=== PATIENT | male | born 1980 | race Caucasian/White ===

== ENCOUNTER 2016-09-08 12:49 | Inpatient (IN) | payer OTHER ==
[2016-09-08] MEDS ORDERED: P-EPHED 60MG/TRIPROLIDI 2.5MG TABLET PO PRN (13:58)
[2016-09-08] MEDS ORDERED: guaiFENesin/D-METHORPHAN HB 10 ML UNIT-DOSE CUPS PO PRN (13:58)
[2016-09-08] MEDS ORDERED: IBUPROFEN 400 MG TABLET (FP) PO PRN (13:58)
[2016-09-08] MEDS ORDERED: MAGNESIUM HYDROX 2400MG/30ML ORAL SUSPENSION 30 ML CUP PO PRN (13:58)
[2016-09-08] MEDS ORDERED: ACETAMINOPHEN 325 MG TABLET (FP) PO PRN (13:58)
[2016-09-08] MEDS ORDERED: MAGNESIUM CITRATE 300 ML BOTTLE PO PRN (13:58)
[2016-09-08] MEDS ORDERED: LOPERAMIDE HCL 2 MG CAPSULE PO PRN (13:58)
[2016-09-08] MEDS ORDERED: MENTHOL/PHENOL 1 EACH UD MM PRN (13:58)
[2016-09-08] MEDS ORDERED: MAG HYDROX/AL HYDROX/SIMETH 30 ML UNIT-DOSE CUP PO PRN (13:58)
--- NOTE | 2016-09-08 17:05 | HP ---
[facility] Rehab Assess/Revision - Admission History Admitted to Rehab [facility]: [facility] Date of Admission to Rehab: 09/08/16 - Vital signs Vital Signs: Vital Signs Period Temp Pulse Resp BP Sys/Limon Pulse Ox Last 24 Hr 98.3 F 79 18 111/77 - Findings Detox History & Physical reviewed: Yes Concur with findings: Yes Comments/Additional Findings: trasnferred from detox to rehab admission as per protocol
[2016-09-08] MEDS: THIAMINE HCL 100 MG TABLET (FP) PO SCH (21:36)
[2016-09-08] MEDS: diphenhydrAMINE HCL 50 MG CAPSULE PO PRN (21:36)
[2016-09-09] MEDS: NICOTINE 21 MG/24 HOURS TOPICAL PATCH TD SCH (10:27)
[2016-09-09] MEDS: PRENATAL VITAMINS W/ FOLIC ACID TABLET (FP) PO SCH (10:27)
[2016-09-09] MEDS ORDERED: INFLUENZA VACCINE 45 MCG/0.5 ML (MDV 16-17) IM ONE (12:00)
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
[2016-09-09] MEDS: hydrOXYzine PAMOATE 50 MG CAPSULE (FP) PO PRN (14:08)
[2016-09-09] MEDS: cloNIDine HCL 0.1 MG TABLET PO SCH ×2 (15:03→21:37)
[2016-09-09] MEDS: THIAMINE HCL 100 MG TABLET (FP) PO SCH (21:37)
[2016-09-09] MEDS: diphenhydrAMINE HCL 50 MG CAPSULE PO PRN (21:38)
[2016-09-09] MEDS ORDERED: QUEtiapine FUMARATE 50 MG TABLET PO SCH (22:00)
[2016-09-10] MEDS: hydrOXYzine PAMOATE 50 MG CAPSULE (FP) PO PRN (06:27)
[2016-09-10 07:01] VITALS: BP 116/72; PULSE 65; TEMP 97.4
[2016-09-10] MEDS: PRENATAL VITAMINS W/ FOLIC ACID TABLET (FP) PO SCH (10:06)
[2016-09-10] MEDS: NICOTINE 21 MG/24 HOURS TOPICAL PATCH TD SCH (10:06)
[2016-09-10] MEDS: cloNIDine HCL 0.1 MG TABLET PO SCH (10:06)
--- NOTE | 2016-09-13 15:38 | PN ---
[facility] Progress Note Note: patient left the unit on 09/10/16, please see medical staff notes.
== END 2016-09-10 12:50 | disposition left against medical advice (07) | DRG 770 ==
LOC: YASAS 12:49 → Y5N 12:56
PROVIDERS: ADMIT Psychiatry & Neurology Psychiatry; ATTEND Psychiatry & Neurology Psychiatry
PROC: HZ42ZZZ Group Counseling for Substance Abuse Treatment, Cognitive-Behavioral (ICD-10-PCS; principal; 2016-09-08)
DX: F11.20 Opioid dependence, uncomplicated (principal); F13.20 Sedative, hypnotic or anxiolytic dependence, uncomplicated; F14.251 Cocaine dependence with cocaine-induced psychotic disorder with hallucinations; F17.210 Nicotine dependence, cigarettes, uncomplicated

== ENCOUNTER 2016-10-18 11:38 | Inpatient (IN) | payer OTHER ==
[2016-10-18 12:42] VITALS: BMI 22.0
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
[2016-10-18] MEDS ORDERED: MAGNESIUM CITRATE 300 ML BOTTLE PO PRN (14:29)
[2016-10-18] MEDS ORDERED: LOPERAMIDE HCL 2 MG CAPSULE PO PRN (14:29)
[2016-10-18] MEDS ORDERED: diphenhydrAMINE HCL 50 MG CAPSULE PO PRN (14:29)
[2016-10-18] MEDS ORDERED: MENTHOL/PHENOL 1 EACH UD MM PRN (14:29)
[2016-10-18] MEDS ORDERED: IBUPROFEN 400 MG TABLET (FP) PO PRN (14:29)
[2016-10-18] MEDS ORDERED: ACETAMINOPHEN 325 MG TABLET (FP) PO PRN (14:29)
[2016-10-18] MEDS ORDERED: MAG HYDROX/AL HYDROX/SIMETH 30 ML UNIT-DOSE CUP PO PRN (14:29)
[2016-10-18] MEDS ORDERED: guaiFENesin/D-METHORPHAN HB 10 ML UNIT-DOSE CUPS PO PRN (14:29)
[2016-10-18] MEDS ORDERED: MAGNESIUM HYDROX 2400MG/30ML ORAL SUSPENSION 30 ML CUP PO PRN (14:29)
[2016-10-18] MEDS ORDERED: P-EPHED 60MG/TRIPROLIDI 2.5MG TABLET PO PRN (14:29)
[2016-10-18] MEDS ORDERED: NICOTINE POLACRILEX 4 MG GUM BUC PRN (14:29)
[2016-10-18] MEDS ORDERED: METHADONE HCL 10 MG TABLET (FOR DETOX USE ONLY) PO ONE ×2 (15:24→23:00)
[2016-10-18] MEDS: NICOTINE 21 MG/24 HOURS TOPICAL PATCH TD SCH (15:46)
[2016-10-18 20:03] LABS: URINE APPEARANCE CLEAR; URINE BILIRUBIN NEGATIVE (NEGATIVE); URINE BLOOD NEGATIVE (NEGATIVE); URINE COLOR YELLOW; URINE GLUCOSE (UA) NEGATIVE (NEGATIVE); URINE KETONE NEGATIVE (NEGATIVE); URINE LEUK ESTERASE NEGATIVE (NEGATIVE); URINE NITRITE NEGATIVE (NEGATIVE); URINE PROTEIN NEGATIVE (NEGATIVE); URINE UROBILINOGEN NEGATIVE E.U./dl (0.2-1.0)
[2016-10-18] MEDS: THIAMINE HCL 100 MG TABLET (FP) PO SCH (22:29)
[2016-10-18] MEDS: diazePAM 5 MG TABLET PO PRN (22:30)
[2016-10-19] MEDS ORDERED: METHADONE HCL 10 MG TABLET (FOR DETOX USE ONLY) PO ONE (10:00)
[2016-10-19 10:11] LABS: MCH 31.7 pg (25.7-33.7); MEAN CELL VOLUME 96.3 fl (80-96); MEAN PLT VOLUME 8.7 fl (7.5-11.1); PLATELET COUNT 235 K/MM3 (134-434); RDW 14.5 % (11.9-15.9)
[2016-10-19 10:35] LABS: ALBUMIN 4.2 g/dl (3.4-5.0); ALK PHOS 94 U/L (45-117); ANION GAP 10 (8-16); BILIRUBIN,TOTAL 0.4 mg/dL (0.2-1.0); CALCIUM 9.2 mg/dL (8.5-10.1); CO2 27 mmol/L (21-32); GLUCOSE,RANDOM 109 mg/dL (74-106); SGOT/AST 42 U/L (15-37); SGPT/ALT 54 U/L (12-78); TOT PROT 8.5 g/dl (6.4-8.2)
--- NOTE | 2016-10-19 10:47 | EKG ---
Test Reason : Blood Pressure : / mmHG Vent. Rate : 068 BPM Atrial Rate : 068 BPM P-R Int : 144 ms QRS Dur : 090 ms QT Int : 424 ms P-R-T Axes : 038 -55 009 degrees QTc Int : 450 ms NORMAL SINUS RHYTHM LEFT ANTERIOR FASCICULAR BLOCK ABNORMAL ECG NO PREVIOUS ECGS AVAILABLE Confirmed by CIRA STARK, RENETTA ([id number]) on 10/19/2016 10:47:39 AM Referred By: Confirmed By:RENETTA DENIS MD
[2016-10-19] MEDS: NICOTINE 21 MG/24 HOURS TOPICAL PATCH TD SCH (10:51)
[2016-10-19] MEDS: PRENATAL VITAMINS W/ FOLIC ACID TABLET (FP) PO SCH (10:51)
[2016-10-19] MEDS: diazePAM 5 MG TABLET PO PRN ×3 (10:53→22:11)
--- NOTE | 2016-10-19 11:54 | PN ---
[facility] COWS - Scale Resting Pulse: 0= [place] 80 or Below Sweatin=Flushed/Facial Moisture Restless Observation: 1= Difficult to Sit Still Pupil Size: 1= Pupils >than Normal Bone or Joint Aches: 2= Severe Diffuse Aches Runny Nose/ Eye Tearin= Nasal Congestion GI Upset > 30mins: 1= Stomach Cramp Tremor Observation of Outstretched Hands: 2= Slight Tremor Visible Yawning Observation: 0= None Anxiety or Irritability: 2=Irritable/Anxious Goose Flesh Skin: 0=Smooth Skin COWS Score: 12 S Progress Note (SOAP) Subjective: interrupted sleep, sweats, irritable Objective: 10/19/16 11:53 Vital Signs Temperature 98.4 F 10/19/16 10:05 Pulse Rate 75 10/19/16 10:05 Respiratory Rate 16 10/19/16 10:05 Blood Pressure 130/64 10/19/16 10:05 O2 Sat by Pulse Oximetry (%) Laboratory Tests 10/18/16 10/19/16 10/19/16 16:00 05:50 05:50 WBC 9.0 RBC 4.21 Hgb 13.4 Hct 40.5 MCV 96.3 H MCHC 33.0 RDW 14.5 Plt Count 235 MPV 8.7 Sodium 138 Potassium 4.0 Chloride 101 Carbon Dioxide 27 Anion Gap 10 BUN 16 Creatinine 1.0 Creat Clearance w eGFR > 60 Random Glucose 109 H D Calcium 9.2 Total Bilirubin 0.4 AST 42 H D ALT 54 D Alkaline Phosphatase 94 Total Protein 8.5 H Albumin 4.2 Urine Color Yellow Urine Appearance Clear Urine pH 5.0 Ur Specific [place] 1.025 Urine Protein Negative Urine Glucose (UA) Negative Urine Ketones Negative Urine Blood Negative Urine Nitrite Negative Urine Bilirubin Negative Urine Urobilinogen Negative Ur Leukocyte Esterase Negative pt aox3 lying in bed , irritable Assessment: 10/19/16 11:53 withdrawl sx's Plan: cont. detox increase fluids
--- NOTE | 2016-10-19 19:14 | CONSULT ---
[facility] Psychiatric Consult - Data Date of interview: 10/19/16 Admission source: [facility] Identifying data: Readmission to [facility] for this 36 y/o male seeking detox treatment on for heroin and cocaine dependence.Patient is single witout children,homeless,unemployed and supported on welfare. Substance Abuse History: - Smoking Cessation. Smoking history: Current every day smoker. Have you smoked in the past 12 months: Yes. Aproximately how many cigarettes per day: 10. Cigars Per Day: 0. Hx Chewing Tobacco Use: No. Initiated information on smoking cessation: Yes. 'Breaking Loose' booklet given : 10/18/16. - Substance & Tx. History. Hx Alcohol Use: No (DENIES). Hx Substance Use: Yes (HEROIN/COCAINE). Substance Use Type: Cocaine, Heroin, Opiates. Hx Substance Use Treatment: Yes ([facility]OX). - Substances Abused. Heroin. Route: Injection. Frequency: Daily. Amount used: 8-10 bags. Age of first use: 19. Date of Last Use: 10/18/16. Cocaine. Route: Injection. Frequency: Daily. Amount used: $100. Age of first use: 19. Date of Last Use: 10/18/16. Street methadone. Frequency: 1-3 times last 30 days. Amount used : 20-30 mg. Age of first use: 32. Date of Last Use: 10/11/16. Confirmed by patient. Medical History: Hepatitis C. Psychiatric History: Patient denies. Physical/Sexual Abuse/Trauma History: Patient denies. Additional Comment: Urine Drug Screen Results: LORENA-Cocaine, OPI-Opiates, MET- Methamphetamine, BZO-Benzodiazepines, MTD-Methadone, OXY-Oxycodone.Noted. Mental Status Exam - Mental Status Exam Alert and Oriented to: Time, Place, Person Cognitive Function: Good Patient Appearance: Well Groomed Mood: Hopeful, Euthymic Affect: Appropriate, Normal Range Patient Behavior: Fatigued, Appropriate, Cooperative Speech Pattern: Clear, Appropriate Voice Loudness: Normal Thought Process: Intact, Goal Oriented Thought Disorder: Not Present Hallucinations: Denies Suicidal Ideation: Denies Homicidal Ideation: Denies Insight/Judgement: Poor Sleep: Poorly, Difficulty falling asleep Appetite: Good Muscle strength/Tone: Normal Gait/Station: Normal Psychiatric Findings - Problem List ([place] 1, 2,3) (1) Cocaine dependence, uncomplicated Current Visit: Yes Status: Acute (2) Opioid dependence with withdrawal Current Visit: Yes Status: Acute (3) Nicotine dependence Current Visit: Yes Status: Acute Qualifiers: Nicotine product type: cigarettes Substance use status: uncomplicated Qualified Code(s): F17.210 - Nicotine dependence, cigarettes, uncomplicated (4) Hepatitis C Current Visit: Yes Status: Chronic Qualifiers: Viral hepatitis chronicity: chronic - Initial Treatment Plan Initial Treatment Plan: Psychoeducation.Detoxification.Seroquel 100 mg po hs.Side effects/benefits discussed with the patient.He agrees with this plan.Observation.
[2016-10-19] MEDS: QUEtiapine FUMARATE 100 MG TABLET (FP) PO SCH (22:11)
[2016-10-19] MEDS: THIAMINE HCL 100 MG TABLET (FP) PO SCH (22:11)
--- NOTE | 2016-10-20 09:43 | PN ---
S COWS - Scale Resting Pulse: 0= [place] 80 or Below Sweatin=Flushed/Facial Moisture Restless Observation: 1= Difficult to Sit Still Pupil Size: 0= Normal to Room Light Bone or Joint Aches: 2= Severe Diffuse Aches Runny Nose/ Eye Tearin= Nasal Congestion GI Upset > 30mins: 0= None Tremor Observation of Outstretched Hands: 2= Slight Tremor Visible Yawning Observation: 1= 1-2x During Session Anxiety or Irritability: 2=Irritable/Anxious Goose Flesh Skin: 0=Smooth Skin COWS Score: 11 [facility] Progress Note (SOAP) Subjective: sweats agitation irritable i want ensure Objective: 10/20/16 09:42 Vital Signs Temperature 97.3 F L 10/20/16 06:54 Pulse Rate 66 10/20/16 06:54 Respiratory Rate 16 10/20/16 06:54 Blood Pressure 98/64 10/20/16 06:54 O2 Sat by Pulse Oximetry (%) Laboratory Tests 10/18/16 10/19/16 10/19/16 16:00 05:50 05:50 WBC 9.0 RBC 4.21 Hgb 13.4 Hct 40.5 MCV 96.3 H MCHC 33.0 RDW 14.5 Plt Count 235 MPV 8.7 Sodium 138 Potassium 4.0 Chloride 101 Carbon Dioxide 27 Anion Gap 10 BUN 16 Creatinine 1.0 Creat Clearance w eGFR > 60 Random Glucose 109 H D Calcium 9.2 Total Bilirubin 0.4 AST 42 H D ALT 54 D Alkaline Phosphatase 94 Total Protein 8.5 H Albumin 4.2 Urine Color Yellow Urine Appearance Clear Urine pH 5.0 Ur Specific [place] 1.025 Urine Protein Negative Urine Glucose (UA) Negative Urine Ketones Negative Urine Blood Negative Urine Nitrite Negative Urine Bilirubin Negative Urine Urobilinogen Negative Ur Leukocyte Esterase Negative RPR Titer 10/19/16 05:50 WBC RBC Hgb Hct MCV MCHC RDW Plt Count MPV Sodium Potassium Chloride Carbon Dioxide Anion Gap BUN Creatinine Creat Clearance w eGFR Random Glucose Calcium Total Bilirubin AST ALT Alkaline Phosphatase Total Protein Albumin Urine Color Urine Appearance Urine pH Ur Specific [place] Urine Protein Urine Glucose (UA) Urine Ketones Urine Blood Urine Nitrite Urine Bilirubin Urine Urobilinogen Ur Leukocyte Esterase RPR Titer Nonreactive awake/alert ambulating no acute distress Assessment: 10/20/16 09:42 withdrawal sx Plan: continue detox increase fluids ensure plus 120ml po bid
[2016-10-20] MEDS ORDERED: METHADONE HCL 5 MG TABLET (FOR DETOX USE ONLY) PO ONE (10:00)
[2016-10-20] MEDS: PRENATAL VITAMINS W/ FOLIC ACID TABLET (FP) PO SCH (10:52)
[2016-10-20] MEDS: NICOTINE 21 MG/24 HOURS TOPICAL PATCH TD SCH (10:53)
--- NOTE | 2016-10-20 20:02 | PN ---
S Progress Note Note: RECEIVED NURSE CALL PATIENT REQUESTS ENSURE BMI 22 ENSURE 120 ML BID CONTINUE DETOX
[2016-10-20] MEDS: THIAMINE HCL 100 MG TABLET (FP) PO SCH (23:02)
[2016-10-20] MEDS: diazePAM 5 MG TABLET PO PRN (23:03)
[2016-10-20] MEDS: QUEtiapine FUMARATE 100 MG TABLET (FP) PO SCH (23:03)
[2016-10-21] MEDS ORDERED: METHADONE HCL 5 MG TABLET (FOR DETOX USE ONLY) PO ONE (10:00)
[2016-10-21] MEDS: PRENATAL VITAMINS W/ FOLIC ACID TABLET (FP) PO SCH (10:28)
[2016-10-21] MEDS: NICOTINE 21 MG/24 HOURS TOPICAL PATCH TD SCH (10:28)
[2016-10-21] MEDS: diazePAM 5 MG TABLET PO PRN (10:29)
--- NOTE | 2016-10-21 12:49 | PN ---
[facility] Progress Note (SOAP) Subjective: interrupted sleep, sweats , bodyaches Objective: 10/21/16 12:46 Vital Signs Temperature 97.6 F 10/21/16 09:32 Pulse Rate 77 10/21/16 09:32 Respiratory Rate 18 10/21/16 09:32 Blood Pressure 134/69 10/21/16 09:32 O2 Sat by Pulse Oximetry (%) Laboratory Tests 10/18/16 10/19/16 10/19/16 16:00 05:50 05:50 WBC 9.0 RBC 4.21 Hgb 13.4 Hct 40.5 MCV 96.3 H MCHC 33.0 RDW 14.5 Plt Count 235 MPV 8.7 Sodium 138 Potassium 4.0 Chloride 101 Carbon Dioxide 27 Anion Gap 10 BUN 16 Creatinine 1.0 Creat Clearance w eGFR > 60 Random Glucose 109 H D Calcium 9.2 Total Bilirubin 0.4 AST 42 H D ALT 54 D Alkaline Phosphatase 94 Total Protein 8.5 H Albumin 4.2 Urine Color Yellow Urine Appearance Clear Urine pH 5.0 Ur Specific [place] 1.025 Urine Protein Negative Urine Glucose (UA) Negative Urine Ketones Negative Urine Blood Negative Urine Nitrite Negative Urine Bilirubin Negative Urine Urobilinogen Negative Ur Leukocyte Esterase Negative RPR Titer 10/19/16 05:50 WBC RBC Hgb Hct MCV MCHC RDW Plt Count MPV Sodium Potassium Chloride Carbon Dioxide Anion Gap BUN Creatinine Creat Clearance w eGFR Random Glucose Calcium Total Bilirubin AST ALT Alkaline Phosphatase Total Protein Albumin Urine Color Urine Appearance Urine pH Ur Specific [place] Urine Protein Urine Glucose (UA) Urine Ketones Urine Blood Urine Nitrite Urine Bilirubin Urine Urobilinogen Ur Leukocyte Esterase RPR Titer Nonreactive pt aox3 in nad ambulating Assessment: 10/21/16 12:47 withdrawl sx's Plan: cont. detox increase fluids motrin prn
[2016-10-21 14:05] VITALS: BP 137/84; PULSE 74; TEMP 97.7
--- NOTE | 2016-10-21 15:23 | DS ---
[facility] Detox Discharge Summary Admission Date: 10/18/16 Discharge Date: 10/21/16 - History Present History: Alcohol Dependence, Cocaine Dependence, Opioid Dependence, Sedative Dependence - Physical Exam Results Vital Signs: Vital Signs Temperature 97.7 F 10/21/16 14:04 Pulse Rate 74 10/21/16 14:04 Respiratory Rate 16 10/21/16 14:04 Blood Pressure 137/84 10/21/16 14:04 O2 Sat by Pulse Oximetry (%) - Treatment Hospital Course: Detox Protocol Followed - Medication Discharge Medications: Ambulatory Orders Quetiapine Fumarate [Seroquel] 100 mg PO HS #30 tablet 10/19/16 - Diagnosis (1) Benzodiazepine dependence Current Visit: Yes Status: Acute (2) Cocaine dependence, uncomplicated Current Visit: Yes Status: Acute (3) Nicotine dependence Current Visit: Yes Status: Acute Qualifiers: Nicotine product type: cigarettes Substance use status: uncomplicated Qualified Code(s): F17.210 - Nicotine dependence, cigarettes, uncomplicated (4) Opioid dependence with withdrawal Current Visit: Yes Status: Acute (5) Hepatitis C Current Visit: Yes Status: Chronic Qualifiers: Viral hepatitis chronicity: chronic - AMA Did Patient Leave Against Medical Advice: Yes (pt just wants to leave detox/. )
[2016-10-21] MEDS ORDERED: METHYL SALICYLATE/MENTHOL OINT 30 GM TUBE TP SCH (22:00)
[2016-10-22] MEDS ORDERED: METHADONE HCL 10 MG TABLET (FOR DETOX USE ONLY) PO ONE (10:00)
[2016-10-23] MEDS ORDERED: METHADONE HCL 5 MG TABLET (FOR DETOX USE ONLY) PO ONE (06:00)
== END 2016-10-21 15:36 | disposition left against medical advice (07) | DRG 770 ==
LOC: YASAS 11:38 → Y6N 15:11
PROVIDERS: ADMIT Internal Medicine; ATTEND Internal Medicine
PROC: HZ2ZZZZ Detoxification Services for Substance Abuse Treatment (ICD-10-PCS; principal; 2016-10-21)
DX: F11.23 Opioid dependence with withdrawal (principal); F13.230 Sedative, hypnotic or anxiolytic dependence with withdrawal, uncomplicated; F14.20 Cocaine dependence, uncomplicated; F17.210 Nicotine dependence, cigarettes, uncomplicated; B18.2 Chronic viral hepatitis C
CPT/HCPCS: 36415; 80053; 81003; 85027; 86593; 93005; 93010

== ENCOUNTER 2017-01-14 12:28 | Inpatient (IN) | payer OTHER ==
[2017-01-14 16:44] VITALS: BMI 24.1
[2017-01-14] MEDS ORDERED: MAG HYDROX/AL HYDROX/SIMETH 30 ML UNIT-DOSE CUP PO PRN (17:04)
[2017-01-14] MEDS ORDERED: NICOTINE POLACRILEX 2 MG GUM BUC PRN (17:04)
[2017-01-14] MEDS ORDERED: IBUPROFEN 400 MG TABLET (FP) PO PRN (17:04)
[2017-01-14] MEDS ORDERED: LOPERAMIDE HCL 2 MG CAPSULE PO PRN (17:04)
[2017-01-14] MEDS ORDERED: MENTHOL/PHENOL 1 EACH UD MM PRN (17:04)
[2017-01-14] MEDS ORDERED: MAGNESIUM HYDROX 2400MG/30ML ORAL SUSPENSION 30 ML CUP PO PRN (17:04)
[2017-01-14] MEDS ORDERED: ACETAMINOPHEN 325 MG TABLET (FP) PO PRN (17:04)
[2017-01-14] MEDS ORDERED: diphenhydrAMINE HCL 50 MG CAPSULE PO PRN (17:04)
[2017-01-14] MEDS ORDERED: P-EPHED 60MG/TRIPROLIDI 2.5MG TABLET PO PRN (17:04)
[2017-01-14] MEDS ORDERED: MAGNESIUM CITRATE 300 ML BOTTLE PO PRN (17:04)
[2017-01-14] MEDS ORDERED: guaiFENesin/D-METHORPHAN HB 10 ML UNIT-DOSE CUPS PO PRN (17:04)
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
[2017-01-14] MEDS ORDERED: METHADONE HCL 10 MG TABLET (FOR DETOX USE ONLY) PO ONE ×2 (19:00→23:00)
[2017-01-14] MEDS: diazePAM 5 MG TABLET PO PRN (21:25)
[2017-01-14] MEDS ORDERED: METHADONE HCL 10 MG TABLET (FOR DETOX USE ONLY) ONE (22:01)
[2017-01-14] MEDS: THIAMINE HCL 100 MG TABLET (FP) PO SCH (22:47)
[2017-01-14] MEDS: BACITRACIN 0.9 GM PACKET TP SCH (22:47)
[2017-01-14 23:03] LABS: URINE APPEARANCE CLEAR; URINE BILIRUBIN NEGATIVE (NEGATIVE); URINE BLOOD NEGATIVE (NEGATIVE); URINE COLOR YELLOW; URINE GLUCOSE (UA) 3+ (NEGATIVE); URINE KETONE NEGATIVE (NEGATIVE); URINE LEUK ESTERASE NEGATIVE (NEGATIVE); URINE NITRITE NEGATIVE (NEGATIVE); URINE PROTEIN NEGATIVE (NEGATIVE); URINE UROBILINOGEN NEGATIVE E.U./dl (0.2-1.0)
[2017-01-15] MEDS ORDERED: METHADONE HCL 10 MG TABLET (FOR DETOX USE ONLY) PO ONE (10:00)
[2017-01-15 10:29] LABS: MCH 32.6 pg (25.7-33.7); MCHC 34.1 g/dl (32.0-35.9); MEAN CELL VOLUME 95.5 fl (80-96); MEAN PLT VOLUME 8.9 fl (7.5-11.1); PLATELET COUNT 197 K/MM3 (134-434); RDW 13.9 % (11.9-15.9); WHITE BLOOD COUNT 10.4 K/mm3 (4.0-10.0)
[2017-01-15] MEDS: PRENATAL VITAMINS W/ FOLIC ACID TABLET (FP) PO SCH (10:42)
[2017-01-15] MEDS: diazePAM 5 MG TABLET PO PRN ×2 (10:42→22:11)
[2017-01-15] MEDS: NICOTINE 14 MG/24 HOURS TOPICAL PATCH TD SCH (10:43)
[2017-01-15 10:50] LABS: ALBUMIN 4.2 g/dl (3.4-5.0); ALK PHOS 117 U/L (45-117); ANION GAP 10 (8-16); BILIRUBIN,TOTAL 1.1 mg/dL (0.2-1.0); CALCIUM 9.3 mg/dL (8.5-10.1); CO2 32 mmol/L (21-32); COCKROFT - GAULT 115.52; GLUCOSE,RANDOM 203 mg/dL (74-106); SGOT/AST 106 U/L (15-37); SGPT/ALT 143 U/L (12-78); TOT PROT 8.2 g/dl (6.4-8.2)
--- NOTE | 2017-01-15 15:16 | PN ---
S COWS - Scale Resting Pulse: 1= [place] 81-100 Sweatin= Chills/Flushing Restless Observation: 1= Difficult to Sit Still Pupil Size: 0= Normal to Room Light Bone or Joint Aches: 2= Severe Diffuse Aches Runny Nose/ Eye Tearin= Nasal Congestion GI Upset > 30mins: 1= Stomach Cramp Tremor Observation of Outstretched Hands: 2= Slight Tremor Visible Yawning Observation: 1= 1-2x During Session Anxiety or Irritability: 2=Irritable/Anxious Goose Flesh Skin: 3=Piloerection COWS Score: 15 S Progress Note (SOAP) Subjective: Tremors, Fatigue, Body Aches. Objective: PT. A & O X 3, OBSERVED AMBULATING ON UNIT. PT. DENIES CHEST PAIN. 01/15/17 15:14 Vital Signs Temperature 97.0 F L 01/15/17 10:55 Pulse Rate 82 01/15/17 10:55 Respiratory Rate 20 01/15/17 10:55 Blood Pressure 108/64 01/15/17 10:55 O2 Sat by Pulse Oximetry (%) Laboratory Last Values WBC 10.4 K/mm3 (4.0-10.0) H 01/15/17 06:05 RBC 3.96 M/mm3 (4.00-5.60) L 01/15/17 06:05 Hgb 12.9 GM/dL (11.7-16.9) 01/15/17 06:05 Hct 37.9 % (35.4-49) 01/15/17 06:05 MCV 95.5 fl (80-96) 01/15/17 06:05 MCHC 34.1 g/dl (32.0-35.9) 01/15/17 06:05 RDW 13.9 % (11.9-15.9) 01/15/17 06:05 Plt Count 197 K/MM3 (134-434) 01/15/17 06:05 MPV 8.9 fl (7.5-11.1) 01/15/17 06:05 Sodium 134 mmol/L (136-145) L 01/15/17 06:05 Potassium 4.3 mmol/L (3.5-5.1) 01/15/17 06:05 Chloride 92 mmol/L (98-107) L 01/15/17 06:05 Carbon Dioxide 32 mmol/L (21-32) 01/15/17 06:05 Anion Gap 10 (8-16) 01/15/17 06:05 BUN 12 mg/dL (7-18) D 01/15/17 06:05 Creatinine 1.0 mg/dL (0.7-1.3) 01/15/17 06:05 Creat Clearance w eGFR > 60 (>60) 01/15/17 06:05 Random Glucose 203 mg/dL (74-106) H D 01/15/17 06:05 Calcium 9.3 mg/dL (8.5-10.1) 01/15/17 06:05 Total Bilirubin 1.1 mg/dL (0.2-1.0) H D 01/15/17 06:05 AST 106 U/L (15-37) H D 01/15/17 06:05 ALT 143 U/L (12-78) H D 01/15/17 06:05 Alkaline Phosphatase 117 U/L (45-117) D 01/15/17 06:05 Total Protein 8.2 g/dl (6.4-8.2) 01/15/17 06:05 Albumin 4.2 g/dl (3.4-5.0) 01/15/17 06:05 Urine Color Yellow 01/14/17 20:32 Urine Appearance Clear 01/14/17 20:32 Urine pH 5.0 (5.0-8.0) 01/14/17 20:32 Urine Protein Negative (NEGATIVE) 01/14/17 20:32 Urine Glucose (UA) 3+ (NEGATIVE) H 01/14/17 20:32 Urine Ketones Negative (NEGATIVE) 01/14/17 20:32 Urine Blood Negative (NEGATIVE) 01/14/17 20:32 Urine Nitrite Negative (NEGATIVE) 01/14/17 20:32 Urine Bilirubin Negative (NEGATIVE) 01/14/17 20:32 Urine Urobilinogen Negative E.U./dl (0.2-1.0) 01/14/17 20:32 Ur Leukocyte Esterase Negative (NEGATIVE) 01/14/17 20:32 RPR Titer Nonreactive (NONREACTIVE) 01/15/17 06:05 LABS NOTED. Assessment: 01/15/17 15:15 WITHDRAWAL SYMPTOMS. Plan: CONTINUE DETOX. ADVISED PATIENT TO FOLLOW-UP WITH HAND SLITTER AFTER DISCHARGE FROM DETOX FOR GENERAL MEDICAL ASSESSMENT AND FOR ABNORMAL ADMISSION LAB VALUES.
--- NOTE | 2017-01-15 16:23 | CONSULT ---
[facility] Psychiatric Consult - Data Date of interview: 01/15/17 Admission source: [facility] Identifying data: Another admission to [facility] for this 36 y/o male seeking detox treatment on for heroin and cocaine dependence.Patient is single witout children,homeless,unemployed and supported on welfare. Substance Abuse History: - Smoking Cessation. Smoking history: Current every day smoker. Have you smoked in the past 12 months: Yes. Aproximately how many cigarettes per day: 10. Cigars Per Day: 0. Hx Chewing Tobacco Use: No. Initiated information on smoking cessation: Yes. 'Breaking Loose' booklet given : 01/14/17. - Substance & Tx. History. Hx Alcohol Use: No. Hx Substance Use: Yes. Substance Use Type: Cocaine, Opiates. Hx Substance Use Treatment: Yes. - Substances Abused. Heroin. Route: Injection. Frequency: Daily. Amount used: 7 bags. Age of first use: 20. Date of Last Use: 01/14/17. Confirmed by patient. Medical History: Hepatitis C. Psychiatric History: Patient denies. Physical/Sexual Abuse/Trauma History: Patient denies. Additional Comment: Urine Drug Screen Results: LORENA-Cocaine, OPI-Opiates.Noted. Mental Status Exam - Mental Status Exam Alert and Oriented to: Time, Place, Person Cognitive Function: Good Patient Appearance: Well Groomed Mood: Hopeful, Euthymic Affect: Appropriate, Normal Range Patient Behavior: Fatigued, Appropriate, Cooperative Speech Pattern: Clear, Appropriate Voice Loudness: Normal Thought Process: Goal Oriented Thought Disorder: Not Present Hallucinations: Denies Suicidal Ideation: Denies Homicidal Ideation: Denies Insight/Judgement: Poor Sleep: Poorly, Difficulty falling asleep Appetite: Good Muscle strength/Tone: Normal Gait/Station: Normal Psychiatric Findings - Problem List ([place] 1, 2,3) (1) Opioid dependence with withdrawal Current Visit: Yes Status: Acute (2) Cocaine dependence, uncomplicated Current Visit: Yes Status: Acute (3) Nicotine dependence Current Visit: Yes Status: Acute Qualifiers: Nicotine product type: cigarettes Substance use status: in withdrawal Qualified Code(s): F17.213 - Nicotine dependence, cigarettes, with withdrawal (4) Substance induced mood disorder Current Visit: Yes Status: Acute (5) Hepatitis C Current Visit: Yes Status: Chronic Qualifiers: Viral hepatitis chronicity: chronic Hepatic coma status: without hepatic coma Qualified Code(s): B18.2 - Chronic viral hepatitis C (6) Insomnia Current Visit: Yes Status: Acute - Initial Treatment Plan Initial Treatment Plan: Psychoeducation.Detoxification.Seroquel 100 mg po hs.Side effects/benefits discussed with patient.He agrees with this careplan.Observation.
[2017-01-15] MEDS: BACITRACIN 0.9 GM PACKET TP SCH (22:11)
[2017-01-15] MEDS: QUEtiapine FUMARATE 100 MG TABLET (FP) PO SCH (22:11)
[2017-01-15] MEDS: THIAMINE HCL 100 MG TABLET (FP) PO SCH (22:11)
[2017-01-16] MEDS ORDERED: METHADONE HCL 5 MG TABLET (FOR DETOX USE ONLY) PO ONE (10:00)
[2017-01-16] MEDS: PRENATAL VITAMINS W/ FOLIC ACID TABLET (FP) PO SCH (10:16)
[2017-01-16] MEDS: NICOTINE 14 MG/24 HOURS TOPICAL PATCH TD SCH (10:17)
--- NOTE | 2017-01-16 16:52 | PN ---
S COWS - Scale Resting Pulse: 0= [place] 80 or Below Sweatin= Chills/Flushing Restless Observation: 0= Sits Still Pupil Size: 0= Normal to Room Light Bone or Joint Aches: 2= Severe Diffuse Aches Runny Nose/ Eye Tearin= Runny Nose/Eyes GI Upset > 30mins: 1= Stomach Cramp Tremor Observation of Outstretched Hands: 2= Slight Tremor Visible Yawning Observation: 1= 1-2x During Session Anxiety or Irritability: 2=Irritable/Anxious Goose Flesh Skin: 3=Piloerection COWS Score: 14 S Progress Note (SOAP) Subjective: Fatigue, Tremors, Sweating. Objective: PT. A & O X 2 (DISORIENTED ABOUT DAY / DATE). PT. OBSERVED AMBULATING ON UNIT. 01/16/17 16:50 Vital Signs Temperature 97.3 F L 01/16/17 13:21 Pulse Rate 72 01/16/17 13:21 Respiratory Rate 20 01/16/17 13:21 Blood Pressure 104/62 01/16/17 13:21 O2 Sat by Pulse Oximetry (%) Laboratory Last Values WBC 10.4 K/mm3 (4.0-10.0) H 01/15/17 06:05 RBC 3.96 M/mm3 (4.00-5.60) L 01/15/17 06:05 Hgb 12.9 GM/dL (11.7-16.9) 01/15/17 06:05 Hct 37.9 % (35.4-49) 01/15/17 06:05 MCV 95.5 fl (80-96) 01/15/17 06:05 MCHC 34.1 g/dl (32.0-35.9) 01/15/17 06:05 RDW 13.9 % (11.9-15.9) 01/15/17 06:05 Plt Count 197 K/MM3 (134-434) 01/15/17 06:05 MPV 8.9 fl (7.5-11.1) 01/15/17 06:05 Sodium 134 mmol/L (136-145) L 01/15/17 06:05 Potassium 4.3 mmol/L (3.5-5.1) 01/15/17 06:05 Chloride 92 mmol/L (98-107) L 01/15/17 06:05 Carbon Dioxide 32 mmol/L (21-32) 01/15/17 06:05 Anion Gap 10 (8-16) 01/15/17 06:05 BUN 12 mg/dL (7-18) D 01/15/17 06:05 Creatinine 1.0 mg/dL (0.7-1.3) 01/15/17 06:05 Creat Clearance w eGFR > 60 (>60) 01/15/17 06:05 Random Glucose 203 mg/dL (74-106) H D 01/15/17 06:05 Calcium 9.3 mg/dL (8.5-10.1) 01/15/17 06:05 Total Bilirubin 1.1 mg/dL (0.2-1.0) H D 01/15/17 06:05 AST 106 U/L (15-37) H D 01/15/17 06:05 ALT 143 U/L (12-78) H D 01/15/17 06:05 Alkaline Phosphatase 117 U/L (45-117) D 01/15/17 06:05 Total Protein 8.2 g/dl (6.4-8.2) 01/15/17 06:05 Albumin 4.2 g/dl (3.4-5.0) 01/15/17 06:05 Urine Color Yellow 01/14/17 20:32 Urine Appearance Clear 01/14/17 20:32 Urine pH 5.0 (5.0-8.0) 01/14/17 20:32 Ur Specific [place] 1.025 (1.005-1.025) 01/14/17 20:32 Urine Protein Negative (NEGATIVE) 01/14/17 20:32 Urine Glucose (UA) 3+ (NEGATIVE) H 01/14/17 20:32 Urine Ketones Negative (NEGATIVE) 01/14/17 20:32 Urine Blood Negative (NEGATIVE) 01/14/17 20:32 Urine Nitrite Negative (NEGATIVE) 01/14/17 20:32 Urine Bilirubin Negative (NEGATIVE) 01/14/17 20:32 Urine Urobilinogen Negative E.U./dl (0.2-1.0) 01/14/17 20:32 Ur Leukocyte Esterase Negative (NEGATIVE) 01/14/17 20:32 RPR Titer Nonreactive (NONREACTIVE) 01/15/17 06:05 LABS NOTED. Assessment: 01/16/17 16:52 WITHDRAWAL SYMPTOMS. Plan: CONTINUE DETOX. BGM ACBK TOMORROW AM FOR ELEVATED ADMISSION RANDOM GLUCOSE LEVEL. ADVISED PATIENT TO FOLLOW-UP WITH VIBRATING SCREED OPERATOR AFTER DISCHARGE FROM DETOX FOR GENERAL MEDICAL ASSESSMENT AND FOR ABNORMAL ADMISSION LAB VALUES.
[2017-01-16] MEDS: diazePAM 5 MG TABLET PO PRN (22:19)
[2017-01-16] MEDS: THIAMINE HCL 100 MG TABLET (FP) PO SCH (22:19)
[2017-01-16] MEDS: QUEtiapine FUMARATE 100 MG TABLET (FP) PO SCH (22:19)
[2017-01-16] MEDS: BACITRACIN 0.9 GM PACKET TP SCH (22:19)
[2017-01-17] MEDS ORDERED: METHADONE HCL 5 MG TABLET (FOR DETOX USE ONLY) PO ONE (10:00)
[2017-01-17] MEDS: PRENATAL VITAMINS W/ FOLIC ACID TABLET (FP) PO SCH (10:34)
[2017-01-17] MEDS: NICOTINE 14 MG/24 HOURS TOPICAL PATCH TD SCH (10:34)
[2017-01-17] MEDS: diazePAM 5 MG TABLET PO PRN ×2 (10:36→16:51)
--- NOTE | 2017-01-17 12:23 | PN ---
B[facility] Progress Note (SOAP) Subjective: Sweating,interrupted sleep,restless. Objective: 01/17/17 12:21 Vital Signs - 8 hr 01/17/17 01/17/17 06:17 09:27 Temperature 97.3 F L 97.1 F L Pulse Rate 62 71 Respiratory 16 18 Rate Blood Pressure 116/68 104/80 Laboratory Tests 01/14/17 01/15/17 01/15/17 20:32 06:05 06:05 WBC 10.4 H RBC 3.96 L Hgb 12.9 Hct 37.9 MCV 95.5 MCHC 34.1 RDW 13.9 Plt Count 197 MPV 8.9 Sodium 134 L Potassium 4.3 Chloride 92 L Carbon Dioxide 32 Anion Gap 10 BUN 12 D Creatinine 1.0 Creat Clearance w eGFR > 60 POC Glucometer Random Glucose 203 H D Calcium 9.3 Total Bilirubin 1.1 H D AST 106 H D ALT 143 H D Alkaline Phosphatase 117 D Total Protein 8.2 Albumin 4.2 Urine Color Yellow Urine Appearance Clear Urine pH 5.0 Ur Specific [place] 1.025 Urine Protein Negative Urine Glucose (UA) 3+ H Urine Ketones Negative Urine Blood Negative Urine Nitrite Negative Urine Bilirubin Negative Urine Urobilinogen Negative Ur Leukocyte Esterase Negative RPR Titer 01/15/17 01/17/17 06:05 06:12 WBC RBC Hgb Hct MCV MCHC RDW Plt Count MPV Sodium Potassium Chloride Carbon Dioxide Anion Gap BUN Creatinine Creat Clearance w eGFR POC Glucometer 154 Random Glucose Calcium Total Bilirubin AST ALT Alkaline Phosphatase Total Protein Albumin Urine Color Urine Appearance Urine pH Ur Specific [place] Urine Protein Urine Glucose (UA) Urine Ketones Urine Blood Urine Nitrite Urine Bilirubin Urine Urobilinogen Ur Leukocyte Esterase RPR Titer Nonreactive labs noted Assessment: 01/17/17 12:22 Withdrawal sx. Plan: Continue detox
--- NOTE | 2017-01-17 13:05 | EKG ---
Test Reason : Blood Pressure : / mmHG Vent. Rate : 074 BPM Atrial Rate : 074 BPM P-R Int : 168 ms QRS Dur : 090 ms QT Int : 374 ms P-R-T Axes : 055 -09 033 degrees QTc Int : 415 ms NORMAL SINUS RHYTHM NORMAL ECG WHEN COMPARED WITH ECG OF 18-OCT-2016 15:50, NO SIGNIFICANT CHANGE WAS FOUND Confirmed by RENETTA DENIS MD ([id number]) on 01/17/2017 1:05:06 PM Referred By: Confirmed By:RENETTA DENIS MD
[2017-01-17] MEDS: THIAMINE HCL 100 MG TABLET (FP) PO SCH (22:36)
[2017-01-17] MEDS: QUEtiapine FUMARATE 100 MG TABLET (FP) PO SCH (22:36)
[2017-01-17] MEDS: BACITRACIN 0.9 GM PACKET TP SCH (22:36)
[2017-01-18] MEDS ORDERED: METHADONE HCL 10 MG TABLET (FOR DETOX USE ONLY) PO ONE (10:00)
[2017-01-18] MEDS: NICOTINE 14 MG/24 HOURS TOPICAL PATCH TD SCH (11:11)
[2017-01-18] MEDS: PRENATAL VITAMINS W/ FOLIC ACID TABLET (FP) PO SCH (11:11)
--- NOTE | 2017-01-18 11:41 | PN ---
BHS Progress Note (SOAP) Subjective: Sweating,interrupted sleep,restless Objective: 01/18/17 11:40 Vital Signs - 8 hr 01/18/17 01/18/17 06:29 09:54 Temperature 95.8 F L 97.2 F L Pulse Rate 59 L 65 Respiratory 16 18 Rate Blood Pressure 99/64 108/72 Laboratory Last Values WBC 10.4 K/mm3 (4.0-10.0) H 01/15/17 06:05 RBC 3.96 M/mm3 (4.00-5.60) L 01/15/17 06:05 Hgb 12.9 GM/dL (11.7-16.9) 01/15/17 06:05 Hct 37.9 % (35.4-49) 01/15/17 06:05 MCV 95.5 fl (80-96) 01/15/17 06:05 MCHC 34.1 g/dl (32.0-35.9) 01/15/17 06:05 RDW 13.9 % (11.9-15.9) 01/15/17 06:05 Plt Count 197 K/MM3 (134-434) 01/15/17 06:05 MPV 8.9 fl (7.5-11.1) 01/15/17 06:05 Sodium 134 mmol/L (136-145) L 01/15/17 06:05 Potassium 4.3 mmol/L (3.5-5.1) 01/15/17 06:05 Chloride 92 mmol/L (98-107) L 01/15/17 06:05 Carbon Dioxide 32 mmol/L (21-32) 01/15/17 06:05 Anion Gap 10 (8-16) 01/15/17 06:05 BUN 12 mg/dL (7-18) D 01/15/17 06:05 Creatinine 1.0 mg/dL (0.7-1.3) 01/15/17 06:05 Creat Clearance w eGFR > 60 (>60) 01/15/17 06:05 POC Glucometer 190 UNITS (()) 01/18/17 06:31 Random Glucose 203 mg/dL (74-106) H D 01/15/17 06:05 Calcium 9.3 mg/dL (8.5-10.1) 01/15/17 06:05 Total Bilirubin 1.1 mg/dL (0.2-1.0) H D 01/15/17 06:05 AST 106 U/L (15-37) H D 01/15/17 06:05 ALT 143 U/L (12-78) H D 01/15/17 06:05 Alkaline Phosphatase 117 U/L (45-117) D 01/15/17 06:05 Total Protein 8.2 g/dl (6.4-8.2) 01/15/17 06:05 Albumin 4.2 g/dl (3.4-5.0) 01/15/17 06:05 Urine Color Yellow 01/14/17 20:32 Urine Appearance Clear 01/14/17 20:32 Urine pH 5.0 (5.0-8.0) 01/14/17 20:32 Ur Specific [place] 1.025 (1.005-1.025) 01/14/17 20:32 Urine Protein Negative (NEGATIVE) 01/14/17 20:32 Urine Glucose (UA) 3+ (NEGATIVE) H 01/14/17 20:32 Urine Ketones Negative (NEGATIVE) 01/14/17 20:32 Urine Blood Negative (NEGATIVE) 01/14/17 20:32 Urine Nitrite Negative (NEGATIVE) 01/14/17 20:32 Urine Bilirubin Negative (NEGATIVE) 01/14/17 20:32 Urine Urobilinogen Negative E.U./dl (0.2-1.0) 01/14/17 20:32 Ur Leukocyte Esterase Negative (NEGATIVE) 01/14/17 20:32 RPR Titer Nonreactive (NONREACTIVE) 01/15/17 06:05 labs noted Assessment: 01/18/17 11:41 Withdrawal sx. Plan: Continue detox
[2017-01-18 21:52] VITALS: TEMP 96.8
[2017-01-18] MEDS: THIAMINE HCL 100 MG TABLET (FP) PO SCH (22:24)
[2017-01-18] MEDS: QUEtiapine FUMARATE 100 MG TABLET (FP) PO SCH (22:24)
[2017-01-18] MEDS: BACITRACIN 0.9 GM PACKET TP SCH (22:25)
[2017-01-19] MEDS ORDERED: METHADONE HCL 5 MG TABLET (FOR DETOX USE ONLY) PO ONE (06:00)
[2017-01-19 06:32] VITALS: BP 111/76; PULSE 76
--- NOTE | 2017-01-19 08:22 | PN ---
S Progress Note (SOAP) Subjective: ALERT,NO COMPLAINT Objective: 01/19/17 08:21 Vital Signs Temperature 96.8 F L 01/19/17 06:31 Pulse Rate 76 01/19/17 06:31 Respiratory Rate 16 01/19/17 06:31 Blood Pressure 111/76 01/19/17 06:31 O2 Sat by Pulse Oximetry (%) Assessment: 01/19/17 08:21 DETOX COMPLETED,NO WITHDRAWAL SYMPTOM Plan: DISCHARGE TODAY,FOLLOW UP WITH AFTER CARE PROGRAM ARRANGEMENT
--- NOTE | 2017-01-19 08:26 | DS ---
[facility] Detox Discharge Summary Admission Date: 01/14/17 Discharge Date: 01/19/17 - History Present History: Cocaine Dependence, Opioid Dependence Additional Comments: FOLLOW UP WITH AFTER CARE PROGRAM ARRANGEMENT Pertinent Past History: HEPATITIS C NICOTINE DEPENDENCE WEIGHT LOSS DEPRESSION - Physical Exam Results Vital Signs: Vital Signs Temperature 96.8 F L 01/19/17 06:31 Pulse Rate 76 01/19/17 06:31 Respiratory Rate 16 01/19/17 06:31 Blood Pressure 111/76 01/19/17 06:31 O2 Sat by Pulse Oximetry (%) - Treatment Hospital Course: Detox Protocol Followed, Detoxed Safely, Responded well, Discharged Condition Good Patient has Accepted a Rehab Referral to: DECLINED - Medication Discharge Medications: Ambulatory Orders Quetiapine Fumarate [Seroquel] 100 mg PO HS #30 tablet 10/19/16 Quetiapine Fumarate [Seroquel] 100 mg PO HS #30 tablet 01/15/17 - AMA Did Patient Leave Against Medical Advice: No
== END 2017-01-19 07:10 | disposition home or self-care (01) | DRG 773 ==
LOC: YASAS 12:28 → Y3N 19:45
PROVIDERS: ADMIT Internal Medicine Addiction Medicine; ATTEND Internal Medicine Addiction Medicine
PROC: HZ2ZZZZ Detoxification Services for Substance Abuse Treatment (ICD-10-PCS; principal; 2017-01-19)
DX: F11.23 Opioid dependence with withdrawal (principal); F14.20 Cocaine dependence, uncomplicated; F17.210 Nicotine dependence, cigarettes, uncomplicated; F19.24 Other psychoactive substance dependence with psychoactive substance-induced mood disorder; F32.9 Major depressive disorder, single episode, unspecified; G47.00 Insomnia, unspecified; B18.2 Chronic viral hepatitis C; F34.1 Dysthymic disorder
CPT/HCPCS: 36415; 80053; 81003; 85027; 86593; 93005; 93010

== ENCOUNTER 2024-03-22 20:07 | Inpatient (IN) | payer OTHER ==
[2024-03-22 20:42] VITALS: BMI 22.4
[2024-03-22] MEDS ORDERED: ONDANSETRON *ODT* 4 MG TABLET SL PRN (21:04)
[2024-03-22] MEDS ORDERED: MAG HYDROX/AL HYDROX/SIMETH 30 ML UNIT-DOSE CUP PO PRN (21:04)
[2024-03-22] MEDS ORDERED: P-EPHED 60MG/TRIPROLIDI 2.5MG TABLET PO PRN (21:04)
[2024-03-22] MEDS ORDERED: NICOTINE POLACRILEX 2 MG GUM BUC PRN (21:04)
[2024-03-22] MEDS ORDERED: METHOCARBAMOL 500 MG TABLET PO PRN (21:04)
[2024-03-22] MEDS ORDERED: NALOXONE (NARCAN) HCL 4 MG/0.1 ML SPRAY NS PRN (21:04)
[2024-03-22] MEDS ORDERED: IBUPROFEN 600 MG TABLET (FP) PO PRN (21:04)
[2024-03-22] MEDS ORDERED: MAGNESIUM HYDROX 2400MG/30ML ORAL SUSPENSION 30 ML CUP PO PRN (21:04)
[2024-03-22] MEDS ORDERED: POLYETHYLENE GLYCOL (HEALTHYLAX) 3350 17 GM PACKET PO PRN (21:04)
[2024-03-22] MEDS ORDERED: BISMUTH SUBSALICYLATE 524 MG/30 ML PO PRN (21:04)
[2024-03-22] MEDS ORDERED: BENZOCAINE/MENTHOL (CHLORASEPTIC ) LOZENGE MM PRN (21:04)
[2024-03-22] MEDS ORDERED: BENZONATATE 200 MG CAPSULE PO PRN (21:04)
[2024-03-22] MEDS ORDERED: NALOXONE HCL 0.4 MG/ML VIAL IM PRN (21:04)
[2024-03-22] MEDS ORDERED: LOPERAMIDE HCL 2 MG CAPSULE PO PRN (21:04)
[2024-03-22] MEDS ORDERED: DICYCLOMINE HCL 10 MG CAPSULE PO PRN (21:04)
[2024-03-22] MEDS ORDERED: NICOTINE POLACRILEX 2 MG LOZENGE BC PRN (21:04)
[2024-03-22] MEDS ORDERED: guaiFENesin 600 MG TABLET.ER (FP) PO PRN (21:04)
[2024-03-22] MEDS ORDERED: IBUPROFEN 400 MG TABLET (FP) PO PRN (21:04)
[2024-03-22] MEDS ORDERED: cloNIDine HCL 0.1 MG TABLET PO PRN (21:06)
[2024-03-22] MEDS ORDERED: methaDONE HCL 10 MG TABLET (FOR DETOX USE ONLY) ONE (21:40)
[2024-03-22] MEDS: methaDONE HCL 10 MG TABLET (FOR DETOX USE ONLY) PO ONE (21:41)
[2024-03-22] MEDS: THIAMINE 100 MG TABLET PO SCH (22:42)
[2024-03-22] MEDS: MELATONIN 5 MG TABLETS PO SCH (22:42)
[2024-03-23] MEDS ORDERED: methaDONE HCL 10 MG TABLET (FOR DETOX USE ONLY) ONE (09:02)
[2024-03-23] MEDS ORDERED: PRENATAL VITAMINS W/ FOLIC ACID TABLET (FP) PO ONE (09:05)
[2024-03-23] MEDS: PRENATAL VITAMINS W/ FOLIC ACID TABLET (FP) PO SCH (09:06)
[2024-03-23 12:04] LABS: POTASSIUM 4.5 mmol/L (3.5-5.1)
[2024-03-23 12:10] LABS: ALBUMIN 3.5 g/dl (3.4-5.0); BLOOD UREA NITROGEN 8.6 mg/dL (7-18)
[2024-03-23 12:13] LABS: HEMATOCRIT 39.4 % (35.4-49); HEMOGLOBIN 13.4 GM/dL (11.7-16.9); MCH 33.2 pg (25.7-33.7); MEAN CELL VOLUME 97.6 fl (80-96); MEAN PLT VOLUME 8.2 fl (7.5-11.1); PLATELET COUNT 233 10^3/uL (134-434); RBC 4.04 M/mm3 (4.00-5.60); RDW 13.4 % (11.9-15.9); WHITE BLOOD COUNT 5.7 K/mm3 (4.0-10.0)
[2024-03-23 12:14] LABS: CREATININE 0.8 mg/dL (0.55-1.3)
[2024-03-23 12:15] LABS: BILIRUBIN,TOTAL 0.4 mg/dL (0.2-1)
[2024-03-23 12:18] LABS: TOT PROT 7.2 g/dl (6.4-8.2)
[2024-03-23] MEDS: QUEtiapine FUMARATE 100 MG TABLET (FP) PO SCH (22:51)
[2024-03-24] MEDS: methaDONE HCL 10 MG TABLET (FOR DETOX USE ONLY) PO ONE (10:54)
[2024-03-24] MEDS: ACETAMINOPHEN 325 MG TABLET (FP) PO PRN (22:29)
[2024-03-26] MEDS: methaDONE HCL 10 MG TABLET (FOR DETOX USE ONLY) PO ONE (09:25)
[2024-03-27 09:30] VITALS: RESP 18
[2024-03-27 13:04] VITALS: BP 136/77; PULSE 75; TEMP 97.5
== END 2024-03-27 14:17 | disposition home or self-care (01) | DRG 773 ==
LOC: YASAS 20:07 → Y6N 03-23 12:20
PROVIDERS: ADMIT Allergy & Immunology; ATTEND Surgery
PROC: HZ2ZZZZ Detoxification Services for Substance Abuse Treatment (ICD-10-PCS; principal; 2024-03-23)
DX: F11.23 Opioid dependence with withdrawal (principal); F14.20 Cocaine dependence, uncomplicated; F12.10 Cannabis abuse, uncomplicated; F17.210 Nicotine dependence, cigarettes, uncomplicated; F20.9 Schizophrenia, unspecified; B18.2 Chronic viral hepatitis C
CPT/HCPCS: 36415; 80053; 80305; 80307; 85027; 86780; 93005; 93010